=== PATIENT | male | born 1990 | race Caucasian/White ===

== ENCOUNTER 2019-10-08 12:54 | Emergency (ER) | payer SELFPAY ==
[2019-10-08 13:00] VITALS: BP 135/91; PULSE 82; RESP 18; TEMP 36.8; O2SAT 97
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
== END 2019-10-08 15:03 | disposition home or self-care (01) ==
PROVIDERS: Emergency Provider Physician Assistant
DX: F32.9 Major depressive disorder, single episode, unspecified (principal); R45.851 Suicidal ideations
CPT/HCPCS: 99285; 99282